=== PATIENT | female | born 1955 | race Caucasian/White ===

== ENCOUNTER 2018-07-20 21:19 | Emergency (ER) | payer OTHER ==
[~2018-07-20] VITALS: Ht 162.6 cm; Wt 79.8 kg
[~2018-07-20 21:19] MED LIST: ALER-CAP25 MG PO; ALEVE220 MG PO; ALLER-TEC10 MG PO; ATORVASTATIN CA40 MG PO; CALCIUM MAGNES1 EAC1 PO; DAILY VITAMIN1 EAC2 PO; IBUPROFEN800 MG PO; LIPITOR80 MG PO; OMEPRAZOLE20 M1 PO; OMEPRAZOLE20 MG PO; PREMARIN0.625 MG PO; TRAMADOL HCL50 MG PO; VITAMIN D31000 UNI1 PO; ZOFRAN8 MG PO; ZOLOFT100 MG PO
[2018-07-20] MEDS ORDERED: ZOLOFT100 MG PO (21:42)
[2018-07-20] MEDS ORDERED: BUSPIRONE HCL7.5 MG PO (21:43)
[2018-07-20] MEDS ORDERED: ZYRTEC10 M3 PO (21:43)
== END 2018-07-21 00:51 | disposition home or self-care (01) ==
LOC: ED 21:19
DX: J20.9 Acute bronchitis, unspecified (principal); R91.8 Other nonspecific abnormal finding of lung field; N18.9 Chronic kidney disease, unspecified; Z87.891 Personal history of nicotine dependence; Z88.0 Allergy status to penicillin; Z88.2 Allergy status to sulfonamides; Z88.1 Allergy status to other antibiotic agents; Z79.899 Other long term (current) drug therapy
CPT/HCPCS: 71046; 71260; 80053; 85025; 99284-25; Q9967

== ENCOUNTER 2019-05-30 13:29 | Emergency (ER) | payer MEDICARE, OTHER ==
[~2019-05-30] VITALS: Ht 162.6 cm; Wt 75.3 kg
[~2019-05-30 13:29] MED LIST changes: +BUSPIRONE HCL7.5 MG PO; +CRANBERRY300 MG PO; +MAGNESIUM500 MG PO; +PROBIOTIC1 EAC1 PO; +TURMERIC500 M2 PO; +TYLENOL325 MG PO; +VITAMIN B COMP1 EAC3 PO; +VITAMIN C500 M1 PO; +ZYRTEC10 M3 PO
[2019-05-30] MEDS ORDERED: CAT'S CLAW500 MG PO (13:48)
[2019-05-30] MEDS ORDERED: LEVAQUIN750 MG PO (16:21)
--- NOTE | 2019-05-30 17:50 | EKG ---
[facility] [address] [place], [place] [address] Signed Normal sinus rhythm Normal ECG No previous ECGs available Confirmed by DASIA BARNEY DO ([id number]) on 05/30/2019 5:50:28 PM Electronically Signed By: DASIA BARNEY DO 05/30/19 1750 PATIENT NAME: DANIELITO KIRKLAND Electrocardiogram DATE OF : 53 PHYSICIAN: DASIA BARNEY DO REPORT #: [id number] REPORT IS CONFIDENTIAL AND NOT TO BE RELEASED WITHOUT AUTHORIZATION
== END 2019-05-30 17:05 | disposition home or self-care (01) ==
LOC: ED 13:29
DX: J40 Bronchitis, not specified as acute or chronic (principal); C34.90 Malignant neoplasm of unspecified part of unspecified bronchus or lung; N18.9 Chronic kidney disease, unspecified; Z87.891 Personal history of nicotine dependence; Z88.0 Allergy status to penicillin; Z88.2 Allergy status to sulfonamides; Z88.1 Allergy status to other antibiotic agents; Z88.8 Allergy status to other drugs, medicaments and biological substances; Z79.899 Other long term (current) drug therapy
CPT/HCPCS: 71045; 71260; 80053; 83735; 84484; 85025; 93005; 93010; 96374; 99285-25; J1100; Q9967